=== PATIENT | female | born 1995 | race Hispanic/Latino ===

== ENCOUNTER 2022-10-03 01:15 | Emergency (ER) | payer SELFPAY ==
[2022-10-03] MEDS ORDERED: Ketorolac Tromethamine 30 MG/ML VIAL ONE (02:44)
[2022-10-03] MEDS ORDERED: Acetaminophen 500 MG TAB ONE (02:45)
== END 2022-10-03 03:41 | disposition home or self-care (01) ==
LOC: CSHERS 01:15
DX: K08.89 Other specified disorders of teeth and supporting structures (principal)
CPT/HCPCS: 96372; 99282; J1885

== ENCOUNTER 2022-10-04 23:48 | Emergency (ER) | payer SELFPAY | END 2022-10-05 00:33 | disposition home or self-care (01) | LOC: CSHERS 23:48 | DX: K08.89 Other specified disorders of teeth and supporting structures (principal) | CPT/HCPCS: 64400 ==

== ENCOUNTER 2024-07-15 11:46 | Emergency (ER) | payer SELFPAY ==
[2024-07-15] MEDS ORDERED: Mag-Al 1200 mg/1200 mg/30 ML UDCUP ONE (13:00)
[2024-07-15] MEDS ORDERED: Lidocaine Viscous Sol 2% 15 ml UD Cup ONE (13:00)
== END 2024-07-15 13:45 | disposition home or self-care (01) ==
LOC: CSHERS 11:46
DX: J02.9 Acute pharyngitis, unspecified (principal); Z75.8 Other problems related to medical facilities and other health care
CPT/HCPCS: 71045; 87081; 87428; 87430